=== PATIENT | female | born 1965 | race Caucasian/White ===

== ENCOUNTER 2018-07-09 09:04 | Day surgery (SDC) | payer OTHER ==
[2018-07-09] MEDS ORDERED: ATROPINE 1 MG/10 ML SYRINGE (11:35)
[2018-07-09] MEDS ORDERED: MIDAZOLAM 1 MG/ML 2 ML INJ ×3 (11:51)
[2018-07-09] MEDS ORDERED: FENTAnyl 50 MCG/ML VIAL (11:51)
== END 2018-07-09 12:13 | disposition home or self-care (01) ==
LOC: GIL 09:04
DX: K92.1 Melena (principal); D12.5 Benign neoplasm of sigmoid colon; K64.8 Other hemorrhoids
CPT/HCPCS: 45380; 84703; 88305